=== PATIENT | male | born 1940 | race Two or more races ===

== ENCOUNTER 2019-04-06 16:36 | Inpatient (IN) | payer OTHER ==
[~2019-04-06] VITALS: Ht 165.1 cm; Wt 77.1 kg
[2019-05-11] MEDS ORDERED: NORVASC5 MG PO (12:40)
[2019-05-11] MEDS ORDERED: AVALIDE 300-121 EACH PO (12:40)
[2019-05-11] MEDS ORDERED: METFORMIN HCL500 M3 PO (12:41)
== END 2019-05-21 19:37 | DRG 470 ==
LOC: O/R 05-19 04:55 → SURG 05-19 04:55
PROVIDERS: ADMIT Orthopaedic Surgery
PROC: 0SRD0J9 Replacement of Left Knee Joint with Synthetic Substitute, Cemented, Open Approach (ICD-10-PCS; principal; 2019-05-19 11:30)
DX: M17.12 Unilateral primary osteoarthritis, left knee (principal); D62 Acute posthemorrhagic anemia; I10 Essential (primary) hypertension; E11.9 Type 2 diabetes mellitus without complications; Z79.4 Long term (current) use of insulin

== ENCOUNTER → 2025-03-15 | Emergency (ER) | payer OTHER ==
[~2025-03-15] VITALS: Ht 165.1 cm; Wt 74.8 kg
[~2025-03-15] MED LIST: AVALIDE 300-121 EACH PO; KETOROLAC TROMETHAMINE 60 MG VIAL IM ONE; METFORMIN HCL500 M3 PO; NEURONTIN300 MG PO; NORFLEX100MG PO; NORVASC5 MG PO; ORPHENADRINE CITRATE 30 MG/ML AMPUL IM ONE; ORPHENADRINE CITRATE 30 MG/ML AMPUL ONE
[2025-03-15 10:28] VITALS: BP 170/72; O2SAT 97
== END | disposition home or self-care (01) ==
LOC: ER 09:53
DX: M25.551 Pain in right hip (principal); M54.16 Radiculopathy, lumbar region; E11.9 Type 2 diabetes mellitus without complications; Z79.84 Long term (current) use of oral hypoglycemic drugs